=== PATIENT | female | born 1955 | race Asian ===

== ENCOUNTER 2016-05-11 20:22 | Emergency (ER) | payer BC ==
[~2016-05-11] VITALS: Ht 152.4 cm; Wt 46.5 kg
[2016-05-11 20:32] VITALS: Ht 152.4 cm; Wt 46.5 kg
--- NOTE | 2016-05-11 21:16 | ERD ---
ER Documentation Chief Complaint Date/Time DATE: 05/11/16 TIME: 21:12 Chief Complaint rashes neck area HPI This is a 60-year-old female who presents the emergency department today complaining of a rash on her chest and neck and arms and legs that started earlier this evening. Patient drink a significant amount of Gavilyte G as she has surgery tomorrow for an ovarian cyst. Patient stated that she started getting itchiness and rash after this. Denies any shortness of breath. Denies any difficulty breathing peer ROS All systems reviewed and are negative except as per history of present illness. Medications Home Meds Active Scripts Famotidine* (Pepcid*) 20 Mg Tablet, 20 MG PO BID for 7 Days, TAB Prov:MARK MORENO PA-C 05/11/16 Diphenhydramine Hcl* (Benadryl*) 25 Mg Cap, 25 MG PO Q6, #30 CAP Prov:MARK MORENO PA-C 05/11/16 Allergies Allergies: Coded Allergies: No Known Allergy (Unverified , 05/11/16) PMhx/Soc Medical and Surgical Hx: pt denies Medical Hx, pt denies Surgical Hx History of Surgery: No Anesthesia Reaction: No Hx Neurological Disorder: No Hx Respiratory Disorders: No Hx Cardiac Disorders: No (HTN, Hyperlipidemia) Hx Psychiatric Problems: No Hx Miscellaneous Medical Probl: Yes (DM) Hx Alcohol Use: No Hx Substance Use: No Hx Tobacco Use: No Smoking Status: Never smoker Physical Exam Vitals Vital Signs Date Time Temp Pulse Resp B/P Pulse Ox O2 Delivery O2 Flow Rate FiO2 05/11/16 20:32 97.9 78 20 187/90 100 Physical Exam Const: No acute distress Head: Atraumatic Eyes: Normal Conjunctiva ENT: Normal External Ears, Nose and Mouth. No lip swelling. No tongue swelling. Neck: Full range of motion..~ No meningismus. Resp: Clear to auscultation bilaterally no absent breath sounds. No wheezing. Cardio: Regular rate and rhythm, no murmurs Abd: Soft, non tender, non distended. Normal bowel sounds Skin: Diffuse urticaria over anterior chest and neck and spots on bilateral arms and legs. No evidence of cellulitis. No purulent drainage. Back: No midline or flank tenderness Ext: No cyanosis, or edema Neur: Awake and alert Psych: Normal Mood and Affect Results 24 hrs Current Medications Medications (Trade) Dose Ordered Sig/Leo Route PRN Reason Start Time Stop Time Status Last Admin Dose Admin Diphenhydramine HCl (Benadryl) 25 mg ONCE ONCE IM 05/11/16 21:30 05/11/16 21:31 DC 05/11/16 21:24 Famotidine (Pepcid) 20 mg ONCE ONCE PO 05/11/16 21:30 05/11/16 21:31 DC 05/11/16 21:24 Dexamethasone (Decadron) 10 mg ONCE ONCE IM 05/11/16 21:30 05/11/16 21:31 DC 05/11/16 21:24 Procedures/MDM This is a 60-year-old female who presents to the emergency department today for a rash on her chest and neck and arms and legs. Patient drank a significant amount of Gavilyte G for a surgical procedure that she is scheduled to have tomorrow. Patient symptoms at this time most consistent with urticaria and allergic reaction. Patient was instructed not to drink the remainder of the MANISH light. She was instructed to call her surgeon in the morning and notify them that she has not drink the entire recommended dosage. Patient is afebrile and otherwise well-appearing. She is not tachycardic. Her oxygen saturations 100%. She is not having any difficulty talking. She denies any shortness of breath. Low suspicion for angioedema or anaphylaxis. Low suspicion for cellulitis, sepsis, SJS, deep space infection. Patient was given Decadron Benadryl and Pepcid here in the emergency department. Patient reported feeling much better. I will give patient a prescription for Benadryl and Pepcid for home. Patient is on 2 medications for diabetes and I do not feel that she would benefit from extended prednisone for home. I have explained this to the patient. At this time the patient is stable for discharge and outpatient management. Patient should follow up with their PCP in the next 1-2 days. They may return to the emergency department sooner for any persistent or worsening of symptoms. Patient understood and agreed with the plan. Departure Diagnosis: Primary Impression: Allergic reaction Encounter type: initial encounter Qualified Code: T78.40XA - Allergic reaction, initial encounter Condition: MARK Gallardo PA-C May 11, 2016 21:16
[2016-05-11] MEDS ORDERED: FAMOTIDINE 20 MG TAB PO ONE (21:30)
[2016-05-11] MEDS ORDERED: DIPHENHYDRAMINE 50 MG INJ IM ONE (21:30)
[2016-05-11] MEDS ORDERED: DEXAMETHASONE 10 MG/ML 1 ML INJ IM ONE (21:30)
[2016-05-11] MEDS ORDERED: FAMO-18 PO (22:33)
[2016-05-11] MEDS ORDERED: BEN25 PO (22:33)
[2016-05-12] MEDS ORDERED: METF1000 PO (13:03)
[2016-05-12] MEDS ORDERED: GABA300C16 PO (13:03)
[2016-05-12] MEDS ORDERED: LOSA50TA6 PO (13:03)
[2016-05-12] MEDS ORDERED: SIMV-39 PO (13:03)
[2016-05-12] MEDS ORDERED: MULT-761 PO (13:03)
[2016-05-12] MEDS ORDERED: VIT D PO (13:03)
[2016-05-12] MEDS ORDERED: SITA100T8 PO (13:03)
[2016-05-12] MEDS ORDERED: ASPI-535 PO (13:03)
[2016-05-12] MEDS ORDERED: LANT3I SC (13:24)
== END 2016-05-11 22:41 | disposition home or self-care (01) ==
LOC: FTE 20:22
DX: R21 Rash and other nonspecific skin eruption (principal); I10 Essential (primary) hypertension; E11.9 Type 2 diabetes mellitus without complications
CPT/HCPCS: 96372; 99284; J1100; J1200; Z7610

== ENCOUNTER 2016-05-12 10:21 | Inpatient (IN) | payer BC ==
[2016-05-10 17:25] LABS: ADD SCAN DIFF NO
[2016-05-10 17:38] LABS: BASOPHILS % 0.3 % (0.0-2.0); EOSINOPHILS # 0.2 10^3/ul (0.0-0.5); EOSINOPHILS % 1.7 % (0.0-7.0); HEMATOCRIT 33.7 % (37.0-47.0); HEMOGLOBIN 11.1 g/dl (12.0-16.0); LYMPHOCYTES # 2.7 10^3/ul (0.8-2.9); LYMPHOCYTES % 30.7 % (15.0-51.0); MEAN CORPUSCULAR HEMOGLOBIN 30.8 pg (29.0-33.0); MEAN CORPUSCULAR HGB CONC 32.9 g/dl (32.0-37.0); MEAN CORPUSCULAR VOLUME 93.6 fl (82.0-101.0); MEAN PLATELET VOLUME 9.5 fl (7.4-10.4); MONOCYTE # 0.5 10^3/ul (0.3-0.9); NEUTROPHIL # 5.3 10^3/ul (1.6-7.5); PLATELET COUNT 315 10^3/UL (140-415); WHITE BLOOD COUNT 8.7 10^3/ul (4.8-10.8)
[2016-05-11 11:45] VITALS: BMI 19.5
[2016-05-12] VITALS (20 sets, daily range): BP systolic 99–143; BP diastolic 56–74; PULSE 66–97; RESP 15–30; Ht 154.9 cm; Wt 45.3 kg
[~2016-05-12] VITALS: Ht 154.9 cm; Wt 45.3 kg
[~2016-05-12 10:21] MED LIST: BEN25 PO; CEFAZOLIN 2 GM/50 ML (PMX) 50 ML IVPB ONE; D5-NS + KCL 20 MEQ 1,000 ML IV SCH; FAMO-18 PO; GLYCOPYRROLATE 0.4 MG INJ ONE; PROPOFOL 200 MG INJ ONE; metroNIDAZOLE 500 MG/NS (PMX) 100 ML IVPB ONE
[2016-05-12] MEDS ORDERED: SITA100T8 PO (13:03)
[2016-05-12] MEDS ORDERED: MULT-761 PO (13:03)
[2016-05-12] MEDS ORDERED: GABA300C16 PO (13:03)
[2016-05-12] MEDS ORDERED: METF1000 PO (13:03)
[2016-05-12] MEDS ORDERED: SIMV-39 PO (13:03)
[2016-05-12] MEDS ORDERED: ASPI-535 PO (13:03)
[2016-05-12] MEDS ORDERED: LOSA50TA6 PO (13:03)
[2016-05-12] MEDS ORDERED: VIT D PO (13:03)
[2016-05-12] MEDS ORDERED: LANT3I SC (13:24)
[2016-05-12] MEDS ORDERED: METHYLENE BLUE 10 MG/ML VIAL ONE (13:39)
[2016-05-12] MEDS ORDERED: MIDAZOLAM 1 MG/ML 2 ML INJ ONE (13:59)
[2016-05-12] MEDS ORDERED: ROCURONIUM 50 MG INJ ONE ×2 (13:59→16:55)
[2016-05-12] MEDS ORDERED: morphine SULFATE/PF (10 MG/10 ML) INJ ONE (13:59)
[2016-05-12] MEDS ORDERED: ETOMIDATE 20 MG INJ ONE (13:59)
--- NOTE | 2016-05-12 14:19 | HP ---
Date/Time of Note Date/Time of Note DATE: 05/12/16 TIME: 14:19 Assessment/Plan VTE Prophylaxis VTE Prophylaxis Intervention: SCD's Lines/Catheters IV [facility]ter [facility]from [facility] Peripheral IV HPI/ROS Admit Date/Time Admit Date/Time May 12, 2016 at 11:48 ROS Adonay Rosas M.D. [facility] History and Physical Examination Paolo Dowling 05/11/2016 Age:60 :1955 Physicians: Block Inspector Social Service Coordinator Oncologist Referring MD:Avery Aviles History of the Present Illness: This is a 60 female with a Atypical Complex Hyperplasia recently / possible Grade 1 endometrial carcinoma diagnosed by d/c endometrial biopsy. Medical history/ROS: Hypertension, Diabetes, Hyperlipidemia. G 6 P 6 Ab 0 Last Pap Smear: 03/16/2016; Last Mammogram: 07/11/2015 Surgical history: no significant abdominal procedures. Medications: 03/30/16 gabapentin 300 mg capsule 1 capsule by mouth DAILY 03/30/16 Januvia 100 mg tablet 1 tablet by mouth DAILY 03/30/16 Lantus 100 unit/mL subcutaneous solution 1 unit inject below the skin as directed 03/30/16 losartan 50 mg tablet 1 tablet by mouth DAILY 03/30/16 metformin 1,000 mg tablet 1 tablet by mouth DAILY 03/30/16 simvastatin 40 mg tablet 1 tablet by mouth DAILY Flu no, declined, Pneumococcal no, declined Colonoscopy: yes, over 10 years ago Allergies: 03/30/16 No Known Intolerances Family History: Noncontributory Social History: Noncontributory Review of Systems: Negative except for above noted Physical Examination Vitals (03/30/2016): Weight 106, Height 60, BP 140/80, BMI 20.7. General: Alert. HEENT: Pupils are equal, round, reactive to light and accommodation. Neck: Supple with no masses of lymphadenopathy. Breast: Deferred due to recent examination and responsibility of primary care physician. Chest: Clear to auscultation and percussion with no rales, ronchi, or wheeze. Heart: Normal rhythm with no murmur. Abdominal exam: nontender, nondistended, no masses, no ascites. location: N/A Pelvic exam: Uterus enlarged and globular, no masses or cul-de-sac nodularity noted Rectal: confirmatory with pelvic exam. Neurological: Grossly intact Assessment: possible endomtrial cancer stage to be determined Plan: TLH/BSO sentinel LND possible lapartotomy. All risks and benefits of this procedure have been discussed in detail with the patient, as well as alternative treatment strategies and their implications. The patient is aware that there is some possibility of a blood transfusion and its associated risks and benefits. She wishes to proceed and gives her informed consent. Adonay Rosas M.D. PMH/Family/Social Social History Smoking Status: Never smoker Exam/Review of Systems Vital Signs Vitals Vital Signs Date Time Temp Pulse Resp B/P Pulse Ox O2 Delivery O2 Flow Rate FiO2 05/12/16 13:27 98.3 97 17 143/67 100 Room Air Labs Result Diagram: 05/10/16 1725 Medications Medications Current Medications Potassium Chloride/Dextrose/ Sod Cl (D5-NS + KCl 20 Meq) 1,000 ml @ 100 mls/hr Q10H IV ; Start 05/12/16 at 07:00; Stop 05/12/16 at 16:59 ADONAY ROSAS MD May 12, 2016 14:19
--- NOTE | 2016-05-12 14:20 | HPN ---
Date/Time of Note Date/Time of Note DATE: 05/12/16 TIME: 14:20 Interval H&P Admission Note Pt. seen H&P reviewed: No system changes BEE ROSSA MD May 12, 2016 14:20
[2016-05-12] MEDS ORDERED: PHENYLephrine (100 MCG/ML) 5ML SYG ONE ×2 (15:24→15:53)
[2016-05-12] MEDS ORDERED: metroNIDAZOLE 500 MG/NS (PMX) 100 ML IVPB ONE (15:28)
[2016-05-12] MEDS ORDERED: CEFAZOLIN 1 GM INJ ONE (15:29)
[2016-05-12] MEDS ORDERED: FAMOTIDINE 20 MG INJ ONE (15:35)
[2016-05-12] MEDS ORDERED: ONDANSETRON 4 MG INJ ONE (15:35)
[2016-05-12] MEDS ORDERED: hydrALAzine 20 MG INJ ONE (16:24)
[2016-05-12] MEDS ORDERED: ONDANSETRON 4 MG INJ IV PRN (17:30)
[2016-05-12] MEDS ORDERED: DIPHENHYDRAMINE 50 MG INJ IV PRN (17:30)
[2016-05-12] MEDS ORDERED: NALOXONE (0.4 MG/ML) INJ IV PRN (17:30)
[2016-05-12] MEDS ORDERED: HYDROmorphONE 1 MG/ML SYG IV PRN ×2 (17:30)
[2016-05-12] MEDS ORDERED: PROCHLORPERAZINE 10 MG INJ IV PRN (17:30)
[2016-05-12] MEDS ORDERED: THROMBIN 5000 UNIT VIAL ONE (17:49)
[2016-05-12] MEDS ORDERED: NEOSTIGMINE 3 MG/3 ML SYRINGE ONE (18:07)
[2016-05-12] MEDS: KETOROLAC 30 MG INJ IV PRN (19:13)
[2016-05-12 20:16] LABS: ADD UMIC YES; URINE BILIRUBIN (Dip) NEGATIVE (NEGATIVE); URINE BLOOD (Dip) 1+ (NEGATIVE); URINE COLOR LT. YELLOW (YELLOW); URINE KETONES (Dip) NEGATIVE (NEGATIVE); URINE LEUKOCYTE ESTERASE (Dip) NEGATIVE (NEGATIVE); URINE NITRITE (Dip) NEGATIVE (NEGATIVE); URINE TOTAL PROTEIN (Dip) NEGATIVE (NEGATIVE); URINE UROBILINOGEN (Dip) 0.2 E.U./dL (0.1-1.0)
[2016-05-12] MEDS ORDERED: D5-LR + KCL 20 MEQ 1,000 ML IV SCH (20:30)
[2016-05-12] MEDS: ONDANSETRON 4 MG INJ IV PRN (20:35)
[2016-05-12 20:50] LABS: SQUAMOUS EPITHELIAL CELL,UR RARE
[2016-05-12] MEDS: CEFAZOLIN 1 GM/50 ML (PMX) 50 ML IVPB SCH (21:34)
[2016-05-13] VITALS: BP 130/71; PULSE 68; RESP 14
[2016-05-13 04:00] VITALS: BP 138/74; PULSE 75; RESP 16
[2016-05-13 05:08] LABS: ADD SCAN DIFF NO
[2016-05-13 05:24] LABS: BASOPHILS % 0.5 % (0.0-2.0); EOSINOPHILS % 0.2 % (0.0-7.0); LYMPHOCYTES # 1.2 10^3/ul (0.8-2.9); LYMPHOCYTES % 18.6 % (15.0-51.0); MEAN CORPUSCULAR HEMOGLOBIN 31.6 pg (29.0-33.0); MEAN CORPUSCULAR VOLUME 101.8 fl (82.0-101.0); MEAN PLATELET VOLUME 9.6 fl (7.4-10.4); MONOCYTE # 0.5 10^3/ul (0.3-0.9); MONOCYTES % 7.7 % (0.0-11.0); NEUTROPHIL # 4.5 10^3/ul (1.6-7.5); NEUTROPHILS % 72.7 % (39.0-77.0); PLATELET COUNT 231 10^3/UL (140-415); RED BLOOD COUNT 2.85 10^6/ul (4.20-5.40); RED CELL DISTRIBUTION WIDTH 12.5 % (11.5-14.5); WHITE BLOOD COUNT 6.2 10^3/ul (4.8-10.8)
[2016-05-13] MEDS: CEFAZOLIN 1 GM/50 ML (PMX) 50 ML IVPB SCH ×2 (05:35→16:19)
[2016-05-13 05:44] LABS: POTASSIUM 4.4 mmol/L (3.5-5.1)
[2016-05-13 05:46] LABS: CREATININE 1.1 mg/dl (0.44-1.00)
[2016-05-13 05:47] LABS: CALCIUM 8.3 mg/dl (8.4-10.2)
[2016-05-13] MEDS: KETOROLAC 30 MG INJ IV PRN ×2 (05:56→13:03)
[2016-05-13 07:57] VITALS: BP 112/59; RESP 18
[2016-05-13] MEDS: D5-LR + KCL 20 MEQ 1,000 ML IV SCH (11:07)
[2016-05-13] MEDS: ACETAMINOPHEN 325 MG TAB PO PRN (16:19)
[2016-05-13 19:00] VITALS: BP 160/74; RESP 19
--- NOTE | 2016-05-13 20:43 | PN ---
Date/Time of Note Date/Time of Note DATE: 05/13/16 TIME: 20:40 Assessment/Plan VTE Prophylaxis VTE Prophylaxis Intervention: SCD's Lines/Catheters IV Catheter Type (from Nrsg): Peripheral IV Urinary Cath still in place: Yes Subjective 24 Hr Interval Summary Free Text/Dictation S-c/o lower abd pain. + flatus and not OOB O- Resp- clear CVS- NSR Abd- was bleedng but now clean Ext NT minimal edema A- as above with delayed recoerey P- Hospitalist, adv diet,possibly tomorrow mobilize Exam/Review of Systems Vital Signs Vitals Vital Signs Date Time Temp Pulse Resp B/P Pulse Ox O2 Delivery O2 Flow Rate FiO2 05/13/16 19:00 98.3 89 19 160/74 96 05/13/16 10:05 Nasal Cannula 2.0 Intake and Output 05/12/16 05/12/16 05/13/16 15:00 23:00 07:00 Intake Total 2550 ml 880 ml Output Total 300 ml 900 ml Balance 2250 ml -20 ml Results Result Diagram: 05/13/16 0420 05/13/16 0420 Results 24 hrs Laboratory Tests Test 05/13/16 04:20 Anion Gap 16 Basophils # 0.0 Basophils % 0.5 Blood Urea Nitrogen 23 H Calcium Level 8.3 L Carbon Dioxide Level 22 Chloride Level 108 Creatinine 1.10 H Eosinophils # 0.0 Eosinophils % 0.2 Glucose Level 303 H Hematocrit 29.0 L Hemoglobin 9.0 L Lymphocytes # 1.2 Lymphocytes % 18.6 Mean Corpuscular Hemoglobin 31.6 Mean Corpuscular Hemoglobin Concent 31.0 L Mean Corpuscular Volume 101.8 H Mean Platelet Volume 9.6 Monocytes # 0.5 Monocytes % 7.7 Neutrophils # 4.5 Neutrophils % 72.7 Nucleated Red Blood Cells # 0.0 Nucleated Red Blood Cells % 0.0 Platelet Count 231 # Potassium Level 4.4 Red Blood Count 2.85 #L Red Cell Distribution Width 12.5 Sodium Level 142 White Blood Count 6.2 # Medications Medications Current Medications Ondansetron HCl (Zofran Inj) 4 mg Q6H PRN IV NAUSEA AND/OR VOMITING Last administered on 05/12/16t 20:35; Admin Dose 4 MG; Start 05/12/16 at 19:30 Acetaminophen/ Hydrocodone Bitart ([place] (5/325)) 1 tab Q6H PRN PO PAIN; Start 05/12/16 at 23:30 Morphine Sulfate 2 mg 2 mg Q3H PRN IV PAIN; Start 05/12/16 at 23:30 Potassium Cl/ Dextrose/Lact Ringer's (D5-Lr + KCl 20 Meq) 1,000 ml @ 60 mls/hr [id number] IV Last administered on 05/13/16 11:07; Admin Dose 60 MLS/HR; Start 05/13/16 at 08:00 Acetaminophen (Tylenol Tab) 650 mg Q4H PRN PO PAIN AND OR ELEVATED TEMP Last administered on 05/13/16 16:19; Admin Dose 650 MG; Start 05/13/16 at 16:00 BEE ROSAS MD May 13, 2016 20:43
[2016-05-13] MEDS: ONDANSETRON 4 MG INJ IV PRN (21:07)
[2016-05-13] MEDS: morphine 2 MG INJ IV PRN (21:08)
[2016-05-13] MEDS: HYDROCODONE/APAP (5/325) TAB PO PRN (23:25)
[2016-05-14] MEDS: D5-LR + KCL 20 MEQ 1,000 ML IV SCH ×3 (00:40→18:50)
[2016-05-14] MEDS: morphine 2 MG INJ IV PRN ×3 (00:54→13:00)
[2016-05-14] MEDS: HYDROCODONE/APAP (5/325) TAB PO PRN ×2 (03:50→11:43)
[2016-05-14] MEDS: ONDANSETRON 4 MG INJ IV PRN ×3 (06:10→20:16)
[2016-05-14 06:38] LABS: ADD SCAN DIFF NO
[2016-05-14 07:00] LABS: BASOPHILS % 0.5 % (0.0-2.0); EOSINOPHILS # 0.1 10^3/ul (0.0-0.5); EOSINOPHILS % 1.9 % (0.0-7.0); HEMATOCRIT 27.2 % (37.0-47.0); HEMOGLOBIN 8.8 g/dl (12.0-16.0); LYMPHOCYTES # 1.4 10^3/ul (0.8-2.9); LYMPHOCYTES % 21.6 % (15.0-51.0); MEAN CORPUSCULAR HEMOGLOBIN 31.3 pg (29.0-33.0); MEAN CORPUSCULAR HGB CONC 32.4 g/dl (32.0-37.0); MEAN CORPUSCULAR VOLUME 96.8 fl (82.0-101.0); MEAN PLATELET VOLUME 9.7 fl (7.4-10.4); MONOCYTE # 0.5 10^3/ul (0.3-0.9); MONOCYTES % 8.2 % (0.0-11.0); NEUTROPHIL # 4.4 10^3/ul (1.6-7.5); NEUTROPHILS % 67.3 % (39.0-77.0); PLATELET COUNT 226 10^3/UL (140-415); RED BLOOD COUNT 2.81 10^6/ul (4.20-5.40); RED CELL DISTRIBUTION WIDTH 12.3 % (11.5-14.5); WHITE BLOOD COUNT 6.5 10^3/ul (4.8-10.8)
[2016-05-14 07:10] LABS: POTASSIUM 4.2 mmol/L (3.5-5.1)
[2016-05-14 07:13] LABS: CREATININE 1.01 mg/dl (0.44-1.00)
[2016-05-14 07:14] LABS: CALCIUM 8.7 mg/dl (8.4-10.2)
[2016-05-14 07:53] VITALS: BP 132/68; RESP 19
[2016-05-14] MEDS ORDERED: KETOROLAC 30 MG INJ IV PRN (12:30)
[2016-05-14] MEDS: HYDROmorphONE 1 MG/ML SYG IV PRN ×2 (17:27→20:56)
[2016-05-14] MEDS ORDERED: HYDROmorphONE 1 MG/ML SYG IV PRN (17:30)
--- NOTE | 2016-05-14 17:57 | PN ---
Date/Time of Note Date/Time of Note DATE: 05/14/16 TIME: 17:55 Assessment/Plan VTE Prophylaxis VTE Prophylaxis Intervention: SCD's, other Lines/Catheters IV Catheter Type (from Nrsg): Saline Lock Urinary Cath still in place: Yes Subjective 24 Hr Interval Summary Free Text/Dictation S- Ongoing pain and difficulty voiding, + flatus yet. Minimally OOB O- Resp- clear CVS- NSR Abd- appropriate tenderness and incision clean Ext- NT mild edema A/P-possible retention. OOB more Exam/Review of Systems Vital Signs Vitals Vital Signs Date Time Temp Pulse Resp B/P Pulse Ox O2 Delivery O2 Flow Rate FiO2 05/14/16 07:53 98.9 89 19 132/68 92 05/13/16 10:05 Nasal Cannula 2.0 Intake and Output 05/13/16 05/13/16 05/14/16 15:00 23:00 07:00 Intake Total 250 ml 1200 ml 1060 ml Output Total 600 ml 300 ml Balance 250 ml 600 ml 760 ml Results Result Diagram: 05/14/16 0440 05/14/16 0450 Results 24 hrs Laboratory Tests Test 05/14/16 04:40 05/14/16 04:50 Basophils # 0.0 Basophils % 0.5 Eosinophils # 0.1 Eosinophils % 1.9 Hematocrit 27.2 L Hemoglobin 8.8 L Lymphocytes # 1.4 Lymphocytes % 21.6 Mean Corpuscular Hemoglobin 31.3 Mean Corpuscular Hemoglobin Concent 32.4 Mean Corpuscular Volume 96.8 Mean Platelet Volume 9.7 Monocytes # 0.5 Monocytes % 8.2 Neutrophils # 4.4 Neutrophils % 67.3 Nucleated Red Blood Cells # 0.0 Nucleated Red Blood Cells % 0.0 Platelet Count 226 Red Blood Count 2.81 L Red Cell Distribution Width 12.3 White Blood Count 6.5 Anion Gap 15 Blood Urea Nitrogen 18 Calcium Level 8.7 Carbon Dioxide Level 22 Chloride Level 109 Creatinine 1.01 H Glucose Level 216 Potassium Level 4.2 Sodium Level 142 Medications Medications Current Medications Ondansetron HCl (Zofran Inj) 4 mg Q6H PRN IV NAUSEA AND/OR VOMITING Last administered on 05/14/16t 13:00; Admin Dose 4 MG; Start 05/12/16 at 19:30 Acetaminophen/ Hydrocodone Bitart 1 tab 1 tab Q6H PRN PO PAIN Last administered on 05/14/16 11:43; Admin Dose 1 TAB; Start 05/12/16 at 23:30 Potassium Cl/ Dextrose/Lact Ringer's (D5-Lr + KCl 20 Meq) 1,000 ml @ 60 mls/hr [id number] IV Last administered on 05/14/16 02:02; Admin Dose 60 MLS/HR; Start 05/13/16 at 08:00 Acetaminophen (Tylenol Tab) 650 mg Q4H PRN PO PAIN AND OR ELEVATED TEMP Last administered on 05/13/16 16:19; Admin Dose 650 MG; Start 05/13/16 at 16:00 Ketorolac Tromethamine (Toradol) 30 mg Q6H PRN IV PAIN; Start 05/14/16 at 12:30 ; Stop 05/17/16 at 12:29 Hydromorphone HCl (Dilaudid) 0.2 mg Q3 PRN IV PAIN LEVEL 1-5 Last administered on 05/14/16 17:27; Admin Dose 0.2 MG; Start 05/14/16 at 17:30 Hydromorphone HCl (Dilaudid) 0.4 mg Q3 PRN IV PAIN LEVEL 6-10; Start 05/14/16 at 17:30 BEE ROSAS MD May 14, 2016 17:57
--- NOTE | 2016-05-14 19:30 | OPR ---
Date/Time of Note Date/Time of Note DATE: 05/14/16 TIME: 19:29 Operative Report Free Text/Dictation OPERATIVE REPORT [facility] Name: Paolo Roberson Date: 05/12/16 Preoperative Diagnosis: Endometrial severe hyperplasia with atypia Postoperative Diagnosis: Endometrial cancer with final pathology pending Procedures: 1- Total laparoscopic hysterectomy with bilateral salpingoophorectomy 2- Bilateral ureteral dissection with repositioning 3- Laparoscopic sentinal pelvic and aortic lymph node dissection Surgeon: Dr. Byrd Community Relations Police Lieutenant: Dr. Willie Rangel Anaesthesia: General with regional Indications for Procedure: This 60- year old patient had endometrial hyperplasia , complex with atypia preoperatively and after discussions of options with risks and benefits it was determined that a laparoscopic hysterectomy with bilateral salpingoophorectomy and sentinal pelvic/aortic lymph node dissection would be completed for the purposes of treatment and possibly planning additional adjuvant therapy if needed. The sentinal pelvic and LND was performed in lieu of the frozen section not being more that 80% reliable in determining presence of cancer; therefore selective staging is performed to determine postoperative management and avoid re-operation unless there is a significant contraindication. Intraoperative Findings and Summary of Procedure: After placing the Trocars and exploration we noted a lightly enlarged uterus with significant adhesions of the adnexia to the sidewalls The TLH/BSO was then Name: Paolo Roberson performed without incident but required a ureteral dissection due to anatomic issues of the adnexia adherent to the sidewalls after which the laparoscopic sentinal LND was performed with a finding of grossly negative nodes pathology pending. Findings and Procedure: After being prepped and draped in the usual manner an EEA sizer and balloon was placed against the cervix. A 5 millimeter trocar was then placed periumbilically without incident. Subsequently, we insufflated and placed two 12- millimeter trocars laterally and a 12 millimeter trocar suprapubically, as well as an additional 5-mm trocar cephlad to the umbilicus. At this time multiple pelvic adhesions were lysed with sharp dissection and the Omni if not adjacent to serosa. Subsequently we explored and noted a moderately enlarged irregular uterus with adnexia adherent to the sidewalls due to apparent inflammation and old scar tissue. Initially the right round ligament was cauterized and transected with the Thunderbeat and the retroperitoneal space further opened parallel to the IP ligament and laterally with the same devise. The right ureter was identified and due to the aforementioned distortion from adherent adnexia was dissected laterally with the Omni and the endo-dissector throughout the length of the ureter and lateralized. After lateralizing the ureter the uterine artery was identified and clipped lateral to the ureter. Hence, a space was developed the broad ligament and the right IP ligament was cauterized and transected with a Thunderbeat after which the uterus was retracted medially and the bladder flap was partly developed with the Thunderbeat and the Omni. We then used a ratcheted endo-grasper placed through the 12-mm suprapubic trocar to manipulate the uterus and with the EEA sizer the uterus was retracted and left round ligament was cauterized and transected with the Thunderbeat and the retroperitoneal space further opened parallel to the IP ligament an laterally with the same devise. The left ureter was identified and due to the aforementioned distortion was dissected laterally with the Omni and the endo-dissector as done contralaterally. After lateralizing the ureter the uterine artery was identified and Name: Paolo [facility] clipped lateral to the ureter. Subsequently, a space was developed in the broad ligament and the left IP ligament was cauterized and transected with a Thunderbeat after which the uterus was retracted medially, allowing development or the bladder flap uneventfully with the Omni and blunt dissection. Subsequently, the right uterine artery was transected with a Thunderbeat perpendicular to the distal lower uterine segment and the Cardinal ligament and utero-sacral ligament were both transected with a Thunderbeat parallel to the lower uterine segment and cervix. An identical series of steps were taken on the left side. The anterior and posterior colpotomies were accomplished with a Thunderbeat anteriorly and posteriorly, and continued around the sides with the Omni and Thunderbeat as the specimen was removed through the vagina uneventfully. The vagina was closed with interrupted 0- vicryl and continuous 2 -0 v-lock suture. At this time the frozen section returned uncertain and the sentinal pelvic and aortic LND were completed after confirming hemostasis. Initially a fan retractor was used for exposure and secured to the Javier arm and all appropriate node tissue adjacent to the right pelvic vessels were removed with sharp and blunt dissection, using the Gyrus bipolar cutting forceps or Gyrus bipolar Omni for hemostasis and lymphostasis. The stefanie tissue was grasped and subsequently placed under tractions with the Omni and the Gyrus bipolar cutting forceps then being used for the hemostasis and lymphostasis in the process of removal and included hypogastric and obturator nodes with the obturator nerve visualized. The dissection was continued to include any stefanie tissue adjacent to the common iliac vessels. The fan retractors were adjusted in that a suprapubically placed fan retracted the broad ligament and ureter with ileum while the right lateral trocar was used for a fan to retract the cecum and ascending colon allowing stefanie tissue adjacent to the vena cava, as well as aorto-caval nodes to be removed using identical technique. Entry Level Project Coordinator vessels were addressed with the Gyrus bipolar cutting forceps or Gyrus bipolar Omni. At this time we placed the fan retractors for contralateral exposure. Subsequently, node tissue adjacent to the left pelvic vessles were removed with sharp and blunt dissection, the Gyrus bipolar cutting forceps or Gyrus bipolar Omni for hemostasis and lymphostasis, with a technique identical to the Name: [facility] right side with equivalent extent of completion. The dissection was continued to include stefanie tissue adjacent to the common iliac vessels. Subsequently, the fan retractors were adjusted and stefanie tissue adjacent to the aorta were dissected using similar technique. After irrigating and assuring hemostasis the 12 millimeter trocars were removed and the fascia was closed with 0-vicryl using an endo-close devise. The gas was removed and the skin of all sites then closed with interrupted 4-0 Plain Gut. The EBL was 100cc and the patient tolerated the procedure well and left the OR in good condition. Bee Byrd M.D. BEE BYRD MD May 14, 2016 19:30
[2016-05-14 21:00] VITALS: BP 197/89; PULSE 96; RESP 17
[2016-05-14] MEDS ORDERED: CLON-379 PO (21:24)
[2016-05-14] MEDS: FAMOTIDINE 20 MG TAB PO SCH (21:30)
[2016-05-14] MEDS: ATORVASTATIN 20 MG TAB PO SCH (21:53)
[2016-05-14] MEDS ORDERED: GLUCAGON 1 MG INJ IM PRN (22:00)
[2016-05-14] MEDS ORDERED: GLUCOSE GEL 15 GRAM TUBE PO PRN ×2 (22:00)
[2016-05-14] MEDS ORDERED: GLUCOSE GEL 15 GRAM TUBE BUCCAL PRN (22:00)
[2016-05-14] MEDS ORDERED: DEXTROSE 50% 50 ML SYRINGE IV PRN ×2 (22:00)
[2016-05-14 22:31] VITALS: BP 186/85; PULSE 92; RESP 17
[2016-05-14 23:37] VITALS: BP 172/82; PULSE 90; RESP 17
[2016-05-15 01:20] VITALS: BP 130/71; PULSE 78; RESP 18
[2016-05-15] MEDS: ACCUCHECK XX SCH (02:00)
[2016-05-15] MEDS: HYDROCODONE/APAP (5/325) TAB PO PRN ×3 (03:31→10:27)
[2016-05-15 05:17] LABS: ADD SCAN DIFF NO
[2016-05-15 05:40] LABS: BASOPHILS % 0.1 % (0.0-2.0); EOSINOPHILS # 0.1 10^3/ul (0.0-0.5); EOSINOPHILS % 1.4 % (0.0-7.0); HEMATOCRIT 24.1 % (37.0-47.0); LYMPHOCYTES # 1.2 10^3/ul (0.8-2.9); LYMPHOCYTES % 16.3 % (15.0-51.0); MEAN CORPUSCULAR HEMOGLOBIN 30.9 pg (29.0-33.0); MEAN CORPUSCULAR HGB CONC 33.2 g/dl (32.0-37.0); MEAN CORPUSCULAR VOLUME 93.1 fl (82.0-101.0); MEAN PLATELET VOLUME 9.6 fl (7.4-10.4); MONOCYTE # 0.6 10^3/ul (0.3-0.9); MONOCYTES % 8.2 % (0.0-11.0); NEUTROPHIL # 5.3 10^3/ul (1.6-7.5); NEUTROPHILS % 73.7 % (39.0-77.0); PLATELET COUNT 214 10^3/UL (140-415); RED BLOOD COUNT 2.59 10^6/ul (4.20-5.40); RED CELL DISTRIBUTION WIDTH 11.9 % (11.5-14.5); WHITE BLOOD COUNT 7.2 10^3/ul (4.8-10.8)
[2016-05-15 05:41] LABS: POTASSIUM 4.1 mmol/L (3.5-5.1)
[2016-05-15 05:44] LABS: CREATININE 0.9 mg/dl (0.44-1.00)
[2016-05-15 05:45] LABS: CALCIUM 8.6 mg/dl (8.4-10.2)
[2016-05-15] MEDS: GABAPENTIN 300 MG CAP PO SCH (08:50)
[2016-05-15] MEDS: LINAGLIPTIN 5 MG TABLET PO SCH (08:51)
[2016-05-15] MEDS: metFORMIN 500 MG TAB PO SCH ×2 (08:51→18:44)
[2016-05-15] MEDS: LOSARTAN 50 MG TAB PO SCH (08:51)
[2016-05-15] MEDS: FAMOTIDINE 20 MG TAB PO SCH ×2 (08:51→21:37)
[2016-05-15] MEDS: INSULIN ASPART [NOVOLOG] 3 ML PEN SC SCH ×4 (08:59→20:54)
[2016-05-15] MEDS: INSULIN GLARGINE [LANtus] 3 ML PEN SC SCH (09:00)
[2016-05-15] MEDS ORDERED: NON-FORMULARY/PATIENT OWN MED (Sitagliptin* (Januvia*) 100 MG) PO SCH (09:00)
[2016-05-15] MEDS: KETOROLAC 15 MG INJ IV PRN ×2 (09:07→18:44)
[2016-05-15] MEDS: ONDANSETRON 4 MG INJ IV PRN (10:15)
[2016-05-15] MEDS: D5-LR + KCL 20 MEQ 1,000 ML IV SCH (10:16)
--- NOTE | 2016-05-15 14:08 | RADRPT ---
Vent Rate: 94 bpm RR Interval: 0 msec AL Interval: 194 msec QRS Duration: 78 msec QT Interval: 350 msec QTC Interval: 437 msec P-R-T [place]: 55 - 53 - 68 degrees Normal sinus rhythm Normal ECG Electronically Signed By: Andrew Alonso [id number]
[2016-05-15] MEDS: LORAZEPAM 1 MG TAB PO PRN (14:43)
[2016-05-15 20:00] VITALS: BP 183/86; PULSE 80; RESP 16
[2016-05-15] MEDS: ATORVASTATIN 20 MG TAB PO SCH (20:49)
[2016-05-15] MEDS ORDERED: SIMVASTATIN 40 MG PO SCH (21:00)
--- NOTE | 2016-05-15 21:19 | PN ---
Date/Time of Note Date/Time of Note DATE: 05/15/16 TIME: 21:16 Assessment/Plan VTE Prophylaxis VTE Prophylaxis Intervention: SCD's Lines/Catheters IV Catheter Type (from Nrsg): Peripheral IV Urinary Cath still in place: No Assessment/Plan Assessment/Plan A/P-possible retention. OOB more; check post void residual Subjective 24 Hr Interval Summary Free Text/Dictation S- Ongoing pain and difficulty voiding, + flatus yet. Minimally OOB O- Resp- clear CVS- NSR Abd- appropriate tenderness and incision clean Ext- NT mild edema A/P-possible retention. OOB more; check post void residual Exam/Review of Systems Vital Signs Vitals Vital Signs Date Time Temp Pulse Resp B/P Pulse Ox O2 Delivery O2 Flow Rate FiO2 05/15/16 01:20 78 18 130/71 05/14/16 20:34 99.8 05/14/16 07:53 92 05/13/16 10:05 Nasal Cannula 2.0 Intake and Output 05/14/16 05/14/16 05/15/16 15:00 23:00 07:00 Intake Total 700 ml 840 ml Output Total 1500 ml 800 ml Balance -800 ml 40 ml Results Result Diagram: 05/15/16 0440 05/15/16 0440 Results 24 hrs Laboratory Tests Test 05/15/16 04:40 05/15/16 08:07 05/15/16 11:07 05/15/16 17:41 Anion Gap 11 Basophils # 0.0 Basophils % 0.1 Blood Urea Nitrogen 12 Calcium Level 8.6 Carbon Dioxide Level 27 Chloride Level 104 Creatinine 0.90 Eosinophils # 0.1 Eosinophils % 1.4 Glucose Level 244 H Hematocrit 24.1 L Hemoglobin 8.0 L Lymphocytes # 1.2 Lymphocytes % 16.3 Mean Corpuscular Hemoglobin 30.9 Mean Corpuscular Hemoglobin Concent 33.2 Mean Corpuscular Volume 93.1 Mean Platelet Volume 9.6 Monocytes # 0.6 Monocytes % 8.2 Neutrophils # 5.3 Neutrophils % 73.7 Nucleated Red Blood Cells # 0.0 Nucleated Red Blood Cells % 0.0 Platelet Count 214 Potassium Level 4.1 Red Blood Count 2.59 L Red Cell Distribution Width 11.9 Sodium Level 138 White Blood Count 7.2 Bedside Glucose 267 H 238 H 157 Test 05/15/16 20:53 Bedside Glucose 127 Medications Medications Current Medications Ondansetron HCl (Zofran Inj) 4 mg Q6H PRN IV NAUSEA AND/OR VOMITING Last administered on 05/15/16 10:15; Admin Dose 4 MG; Start 05/12/16 at 19:30 Acetaminophen/ Hydrocodone Bitart 1 tab 1 tab Q6H PRN PO PAIN Last administered on 05/15/16 10:15; Admin Dose 1 TAB; Start 05/12/16 at 23:30 Potassium Cl/ Dextrose/Lact Ringer's (D5-Lr + KCl 20 Meq) 1,000 ml @ 60 mls/hr [id number] IV Last administered on 05/15/16 10:16; Admin Dose 60 MLS/HR; Start 05/13/16 at 08:00 Acetaminophen (Tylenol Tab) 650 mg Q4H PRN PO PAIN AND OR ELEVATED TEMP Last administered on 05/13/16 16:19; Admin Dose 650 MG; Start 05/13/16 at 16:00 Hydromorphone HCl (Dilaudid) 0.2 mg Q3 PRN IV PAIN LEVEL 1-5 Last administered on 05/14/16 20:56; Admin Dose 0.2 MG; Start 05/14/16 at 17:30 Hydromorphone HCl (Dilaudid) 0.4 mg Q3 PRN IV PAIN LEVEL 6-10 Last administered on 05/15/16 10:29; Admin Dose 0.4 MG; Start 05/14/16 at 17:30 Ketorolac Tromethamine (Toradol) 15 mg Q6H PRN IV PAIN Last administered on 05/15 18:44; Admin Dose 15 MG; Start 05/14/16 at 18:30; Stop 05/17/16 at 18:29 Famotidine (Pepcid) 20 mg BID PO Last administered on 05/15/16 08:51; Admin Dose 20 MG; Start 05/14/16 at 21:30 Gabapentin (Neurontin) 300 mg DAILY PO Last administered on 05/15/16 08:50; Admin Dose 300 MG; Start 05/15/16 at 09:00 Insulin Glargine (Lantus) 20 unit DAILY SC Last administered on 05/15/16 09:00 ; Admin Dose 20 UNIT; Start 05/15/16 at 09:00 Losartan Potassium (Cozaar) 50 mg DAILY PO Last administered on 05/15/16 08:51 ; Admin Dose 50 MG; Start 05/15/16 at 09:00 Diagnostic Test (Pha) (Accucheck) 1 ea 02 XX ; Start 05/15/16 at 02:00 Atorvastatin Calcium (Lipitor) 20 mg DAILY@21 PO Last administered on 05/15/16 20:49; Admin Dose 20 MG; Start 05/14/16 at 21:00 Clonidine (Catapres) 0.1 mg Q6H PRN PO ELEVATED BLOOD PRESSURE Last administered on 05/15/16 20:49; Admin Dose 0.1 MG; Start 05/14/16 at 22:00 Linagliptin (Tradjenta) 5 mg DAILY PO Last administered on 05/15/16 08:51; Admin Dose 5 MG; Start 05/15/16 at 09:00 Miscellaneous Information 1 ea NOTE XX ; Start 05/14/16 at 22:00 Glucose (Glutose) 15 gm Q15M PRN PO DECREASED GLUCOSE; Start 05/14/16 at 22:00 Glucose (Glutose) 22.5 gm Q15M PRN PO DECREASED GLUCOSE; Start 05/14/16 at 22:00 Dextrose (D50w Syringe) 25 ml Q15M PRN IV DECREASED GLUCOSE; Start 05/14/16 at 22:00 Dextrose (D50w Syringe) 50 ml Q15M PRN IV DECREASED GLUCOSE; Start 05/14/16 at 22:00 Glucagon (Glucagen) 1 mg Q15M PRN IM DECREASED GLUCOSE; Start 05/14/16 at 22:00 Glucose (Glutose) 15 gm Q15M PRN BUCCAL DECREASED GLUCOSE; Start 05/14/16 at 22: 00 Lorazepam (Ativan) 1 mg Q6H PRN PO ANXIETY Last administered on 05/15/16 14:43 ; Admin Dose 1 MG; Start 05/15/16 at 14:00 BEE ROSAS MD May 15, 2016 21:19
[2016-05-15 21:30] VITALS: BP 160/80; PULSE 78; RESP 16
[2016-05-15 22:13] VITALS: BP 128/77; PULSE 77; RESP 16
[2016-05-16] MEDS: ACCUCHECK XX SCH (02:00)
[2016-05-16] MEDS: D5-LR + KCL 20 MEQ 1,000 ML IV SCH ×2 (02:20→18:20)
[2016-05-16] MEDS: ONDANSETRON 4 MG INJ IV PRN ×3 (02:20→17:23)
[2016-05-16 04:54] LABS: ADD SCAN DIFF NO
[2016-05-16 05:10] LABS: BASOPHILS % 0.5 % (0.0-2.0); EOSINOPHILS # 0.2 10^3/ul (0.0-0.5); EOSINOPHILS % 2.2 % (0.0-7.0); HEMATOCRIT 24.1 % (37.0-47.0); HEMOGLOBIN 8.1 g/dl (12.0-16.0); LYMPHOCYTES # 1.4 10^3/ul (0.8-2.9); LYMPHOCYTES % 18.4 % (15.0-51.0); MEAN CORPUSCULAR HEMOGLOBIN 31.2 pg (29.0-33.0); MEAN CORPUSCULAR HGB CONC 33.6 g/dl (32.0-37.0); MEAN CORPUSCULAR VOLUME 92.7 fl (82.0-101.0); MEAN PLATELET VOLUME 9.3 fl (7.4-10.4); MONOCYTE # 0.6 10^3/ul (0.3-0.9); NEUTROPHIL # 5.5 10^3/ul (1.6-7.5); NEUTROPHILS % 70.5 % (39.0-77.0); PLATELET COUNT 248 10^3/UL (140-415); RED CELL DISTRIBUTION WIDTH 11.7 % (11.5-14.5); WHITE BLOOD COUNT 7.7 10^3/ul (4.8-10.8)
[2016-05-16 05:36] LABS: POTASSIUM 3.9 mmol/L (3.5-5.1)
[2016-05-16 05:38] LABS: ALBUMIN/GLOBULIN RATIO 1.07; BILIRUBIN,INDIRECT 0.2 mg/dl (0-1.1); BILIRUBIN,TOTAL 0.2 mg/dl (0.2-1.3); CREATININE 1.34 mg/dl (0.44-1.00); TOTAL PROTEIN 5.8 g/dl (6.1-8.1)
[2016-05-16] MEDS: KETOROLAC 15 MG INJ IV PRN (07:17)
[2016-05-16] MEDS: INSULIN ASPART [NOVOLOG] 3 ML PEN SC SCH ×4 (07:50→22:20)
[2016-05-16 08:42] VITALS: BP 145/69; RESP 16
[2016-05-16] MEDS: metFORMIN 500 MG TAB PO SCH ×3 (10:13→17:55)
[2016-05-16] MEDS: LINAGLIPTIN 5 MG TABLET PO SCH (10:13)
[2016-05-16] MEDS: GABAPENTIN 300 MG CAP PO SCH (10:13)
[2016-05-16] MEDS: LOSARTAN 50 MG TAB PO SCH (10:13)
[2016-05-16] MEDS: FAMOTIDINE 20 MG TAB PO SCH (10:13)
[2016-05-16] MEDS: INSULIN GLARGINE [LANtus] 3 ML PEN SC SCH (10:25)
--- NOTE | 2016-05-16 13:04 | PN ---
Date/Time of Note Date/Time of Note DATE: 05/16/16 TIME: 13:02 Assessment/Plan VTE Prophylaxis VTE Prophylaxis Intervention: SCD's Lines/Catheters IV Catheter Type (from Nrs): Peripheral IV Urinary Cath still in place: No Assessment/Plan Chief Complaint/Hosp Course endometrial hyperplasia, DM, HTN Problems: Assessment/Plan A/P-Adv diet and OOB more and bladder train Subjective 24 Hr Interval Summary Free Text/Dictation S- Less pain and + BM. Minimally OOB O- Resp- clear CVS- NSR Abd- appropriate tenderness and incision clean Ext- NT mild edema A/P-Adv diet and OOB more and bladder train Exam/Review of Systems Vital Signs Vitals Vital Signs Date Time Temp Pulse Resp B/P Pulse Ox O2 Delivery O2 Flow Rate FiO2 05/16/16 08:42 98.3 78 16 145/69 98 05/15/16 21:30 Room Air 05/13/16 10:05 2.0 Intake and Output 05/15/16 05/15/16 05/16/16 15:00 23:00 07:00 Intake Total 800 ml 960 ml Output Total 550 ml Balance 800 ml 410 ml Results Result Diagram: 05/16/16 0420 05/16/16 0420 Results 24 hrs Laboratory Tests Test 05/15/16 17:41 05/15/16 20:53 05/16/16 04:20 05/16/16 08:28 Bedside Glucose 157 127 103 Alanine Aminotransferase (ALT/SGPT) 27 Albumin 3.0 L Albumin/Globulin Ratio 1.07 Alkaline Phosphatase 55 Anion Gap 12 Aspartate Amino Transf (AST/SGOT) 23 Basophils # 0.0 Basophils % 0.5 Blood Urea Nitrogen 14 Calcium Level 9.0 Carbon Dioxide Level 31 Chloride Level 103 Creatinine 1.34 H Direct Bilirubin 0.00 Eosinophils # 0.2 Eosinophils % 2.2 Globulin 2.80 Glucose Level 89 # Hematocrit 24.1 L Hemoglobin 8.1 L Indirect Bilirubin 0.2 Lymphocytes # 1.4 Lymphocytes % 18.4 Mean Corpuscular Hemoglobin 31.2 Mean Corpuscular Hemoglobin Concent 33.6 Mean Corpuscular Volume 92.7 Mean Platelet Volume 9.3 Monocytes # 0.6 Monocytes % 8.0 Neutrophils # 5.5 Neutrophils % 70.5 Nucleated Red Blood Cells # 0.0 Nucleated Red Blood Cells % 0.0 Platelet Count 248 Potassium Level 3.9 Red Blood Count 2.60 L Red Cell Distribution Width 11.7 Sodium Level 142 Total Bilirubin 0.2 Total Protein 5.8 L White Blood Count 7.7 Test 05/16/16 12:36 Bedside Glucose 142 Medications Medications Current Medications Ondansetron HCl (Zofran Inj) 4 mg Q6H PRN IV NAUSEA AND/OR VOMITING Last administered on 05/16/16 08:39; Admin Dose 4 MG; Start 05/12/16 at 19:30 Acetaminophen/ Hydrocodone Bitart 1 tab 1 tab Q6H PRN PO PAIN Last administered on 05/15/16 10:15; Admin Dose 1 TAB; Start 05/12/16 at 23:30 Potassium Cl/ Dextrose/Lact Ringer's (D5-Lr + KCl 20 Meq) 1,000 ml @ 60 mls/hr [id number] IV Last administered on 05/16/16 02:20; Admin Dose 60 MLS/HR; Start 05/13/16 at 08:00 Acetaminophen (Tylenol Tab) 650 mg Q4H PRN PO PAIN AND OR ELEVATED TEMP Last administered on 05/13/16 16:19; Admin Dose 650 MG; Start 05/13/16 at 16:00 Hydromorphone HCl (Dilaudid) 0.2 mg Q3 PRN IV PAIN LEVEL 1-5 Last administered on 05/14/16 20:56; Admin Dose 0.2 MG; Start 05/14/16 at 17:30 Hydromorphone HCl (Dilaudid) 0.4 mg Q3 PRN IV PAIN LEVEL 6-10 Last administered on 05/15/16 10:29; Admin Dose 0.4 MG; Start 05/14/16 at 17:30 Ketorolac Tromethamine (Toradol) 15 mg Q6H PRN IV PAIN Last administered on 05/16 07:17; Admin Dose 15 MG; Start 05/14/16 at 18:30; Stop 05/17/16 at 18:29 Gabapentin (Neurontin) 300 mg DAILY PO Last administered on 05/16/16 10:13; Admin Dose 300 MG; Start 05/15/16 at 09:00 Insulin Glargine (Lantus) 20 unit DAILY SC Last administered on 05/16/16 10:25 ; Admin Dose 20 UNIT; Start 05/15/16 at 09:00 Losartan Potassium (Cozaar) 50 mg DAILY PO Last administered on 05/16/16 10:13 ; Admin Dose 50 MG; Start 05/15/16 at 09:00 Diagnostic Test (Pha) (Accucheck) 1 ea 02 XX ; Start 05/15/16 at 02:00 Atorvastatin Calcium (Lipitor) 20 mg DAILY@21 PO Last administered on 05/15/16 20:49; Admin Dose 20 MG; Start 05/14/16 at 21:00 Clonidine (Catapres) 0.1 mg Q6H PRN PO ELEVATED BLOOD PRESSURE Last administered on 05/15/16 20:49; Admin Dose 0.1 MG; Start 05/14/16 at 22:00 Linagliptin (Tradjenta) 5 mg DAILY PO Last administered on 05/16/16 10:13; Admin Dose 5 MG; Start 05/15/16 at 09:00 Miscellaneous Information 1 ea NOTE XX ; Start 05/14/16 at 22:00 Glucose (Glutose) 15 gm Q15M PRN PO DECREASED GLUCOSE; Start 05/14/16 at 22:00 Glucose (Glutose) 22.5 gm Q15M PRN PO DECREASED GLUCOSE; Start 05/14/16 at 22:00 Dextrose (D50w Syringe) 25 ml Q15M PRN IV DECREASED GLUCOSE; Start 05/14/16 at 22:00 Dextrose (D50w Syringe) 50 ml Q15M PRN IV DECREASED GLUCOSE; Start 05/14/16 at 22:00 Glucagon (Glucagen) 1 mg Q15M PRN IM DECREASED GLUCOSE; Start 05/14/16 at 22:00 Glucose (Glutose) 15 gm Q15M PRN BUCCAL DECREASED GLUCOSE; Start 05/14/16 at 22: 00 Lorazepam (Ativan) 1 mg Q6H PRN PO ANXIETY Last administered on 05/15/16 14:43 ; Admin Dose 1 MG; Start 05/15/16 at 14:00 Famotidine (Pepcid) 20 mg DAILY PO ; Start 05/17/16 at 09:00 BEE ROSAS MD May 16, 2016 13:04
--- NOTE | 2016-05-16 13:36 | CONS ---
DATE OF ADMISSION: 05/12/2016 DATE OF CONSULTATION: 05/12/2016 REQUESTING PHYSICIAN: Adonay Byrd MD REASON FOR CONSULTATION: Medical management. HISTORY OF PRESENT ILLNESS: This is a pleasant 60-year-old female with past medical history of diab etes mellitus, hypertension, dyslipidemia, vitamin D deficiency, GERD, endometrial severe hyperplasi a with atypia who has been seen and evaluated by Dr. Adonay Byrd as outpatient and has been admit ryan to [facility] on 05/12/2016 for elective total laparoscopic hysterectomy with bilateral salpingo-oophorectomy. After discussing the mode of the treatment and the risks and the benefits of the surgery and signing consent, the patient was taken to OR for total laparoscopic hysterectomy and bilateral salpingo-oop horectomy, bilateral ureteral dissection with repositioning, laparoscopic pelvic and aortic l ymph node dissection The patient tolerated the procedure well and was taken to recovery room and has been admitted to med/surg for further evaluation and treatment. At this time, the patient denies a ny chest pain, shortness of breath, nausea, vomiting, diarrhea, minimal abdominal pain postoperative ly. No dysuria, hematuria, urgency, incontinence. The patient has been having some difficulty with ambulation secondary to pain, although she is minimal assist with ambulation. PAST MEDICAL AND SURGICAL HISTORY: 1. Diabetes mellitus. 2. Hypertension. 3. Dyslipidemia. 4. Vitamin D deficiency. 5. GERD. 6. Endometriosis with severe hyperplasia with atypia. MEDICATIONS: 1. Clonidine. 2. Famotidine. 3. Gabapentin. 4. Lantus. 5. Losartan 6. Metformin. 7. Multivitamin. 8. Simvastatin. 9. Januvia. 10. Vitamin D. ALLERGIES: 1. GOLYTELY POLYETHYLENE GLYCOL. 2. POTASSIUM CHLORIDE. 3. SODIUM BICARBONATE. 4. SODIUM SULFATE. SOCIAL HISTORY: Negative x3 for smoking, alcohol, illicit drugs. FAMILY HISTORY: Noncontributory. REVIEW OF SYSTEMS: As above per HPI, otherwise 12 review of systems has been found to be negative. PHYSICAL EXAMINATION: VITAL SIGNS: Temperature 98.3, pulse 78, respiration 16, blood pressure 145/69, oxygen 98% in room air. GENERAL APPEARANCE: The patient is lying in bed comfortably without any distress. She is awake, al ert, oriented. She is able to answer my questions properly. EYES AND ENT: Conjunctivae and lids are normal. Pupils are normal. Extraocular normal. Hearing g rossly normal. Lips are normal. Oral mucosa is moist. NECK: Supple. Trachea is midline. No lymphadenopathy. RESPIRATORY: Effort is normal. Clear to auscultate bilaterally. CARDIOVASCULAR: Normal S1, S2. Regular rhythm and rate. No murmur, no bruits, no edema. Peripher al pulses, radial pulses palpable. Cap refill is normal. CHEST: Normal expansion, inspiration. GASTROINTESTINAL: Abdomen is soft, minimally tender at the surgical site, especially in the periumb ilical region. The surgical site is dry and clean. There is no evidence of hematoma or active blee ding. No guarding, no rebound. GENITOURINARY: Deferred. MUSCULOSKELETAL: Upper and lower extremities within normal limits. Full range of motion. NEUROLOGIC: Cranial nerves II through XII are grossly intact. PSYCHIATRIC: Normal judgment and insight. Alert and oriented x3. Mood and affect is normal. LABORATORY WORK: Sodium 142, potassium 3.9, chloride 103, bicarbonate 31, BUN 14, creatinine 1.34, glucose 89, albumin 3.0. WBC 7.7, hemoglobin 8.1, hematocrit 24.1, platelets 284. ASSESSMENT AND PLAN: 1. Endometrial cancer with hyperplasia and atypia. The patient is status post laparoscopic hystere ctomy, bilateral salpingo-oophorectomy, bilateral ureteral dissection reposition laparoscopic , pelvic and aortic lymph node dissection by Dr. Byrd. Continue postop care. Continue pain medi cation, antiemetic medication and diet as per his recommendation. 2. Diabetes mellitus. Continue Januvia and Metformin, insulin sliding scale. 3. Hypertension, well controlled on medical management. 4. Acute renal insufficiency, may be secondary to anemia. We will follow up renal panel in a.m. C ontinue IV fluid. 5. Vitamin D deficiency. Continue vitamin D supplementation. 8. Gastroesophageal reflux disease. Continue Pepcid. 9. Neuropathy. Continue gabapentin. 10. Dyslipidemia. Continue statin. 11. For deep venous thrombosis prophylaxis, on sequential compression devices. 12. We will continue to monitor patient closely. Further recommendations, management and treatment as per clinical course. Dictated By: LEROY ROGERS/DIANE Conf#: [id number] [facility]#: [id number]
[2016-05-16] MEDS: HYDROCODONE/APAP (5/325) TAB PO PRN (17:23)
[2016-05-16 20:03] VITALS: BP 184/80; RESP 18
[2016-05-16] MEDS: ATORVASTATIN 20 MG TAB PO SCH (20:53)
[2016-05-16] MEDS ORDERED: ONDANSETRON 4 MG TAB PO PRN (22:00)
[2016-05-16] MEDS ORDERED: traMADol 50 MG TAB PO PRN (22:00)
[2016-05-16 22:18] VITALS: BP 188/91; PULSE 66
[2016-05-16 22:19] VITALS: BP 175/81; PULSE 68
[2016-05-17 01:07] VITALS: BP 115/64; PULSE 58
[2016-05-17] MEDS: ACCUCHECK XX SCH (02:00)
[2016-05-17 05:02] LABS: ADD SCAN DIFF NO
[2016-05-17 05:17] LABS: BASOPHILS % 0.5 % (0.0-2.0); EOSINOPHILS # 0.2 10^3/ul (0.0-0.5); EOSINOPHILS % 3.3 % (0.0-7.0); HEMATOCRIT 25.4 % (37.0-47.0); HEMOGLOBIN 8.4 g/dl (12.0-16.0); LYMPHOCYTES # 1.3 10^3/ul (0.8-2.9); LYMPHOCYTES % 23.3 % (15.0-51.0); MEAN CORPUSCULAR HEMOGLOBIN 30.9 pg (29.0-33.0); MEAN CORPUSCULAR HGB CONC 33.1 g/dl (32.0-37.0); MEAN CORPUSCULAR VOLUME 93.4 fl (82.0-101.0); MEAN PLATELET VOLUME 9.3 fl (7.4-10.4); MONOCYTE # 0.6 10^3/ul (0.3-0.9); MONOCYTES % 10.1 % (0.0-11.0); NEUTROPHIL # 3.6 10^3/ul (1.6-7.5); NEUTROPHILS % 62.6 % (39.0-77.0); PLATELET COUNT 279 10^3/UL (140-415); RED BLOOD COUNT 2.72 10^6/ul (4.20-5.40); RED CELL DISTRIBUTION WIDTH 11.8 % (11.5-14.5); WHITE BLOOD COUNT 5.8 10^3/ul (4.8-10.8)
[2016-05-17 05:24] LABS: POTASSIUM 4.3 mmol/L (3.5-5.1)
[2016-05-17 05:27] LABS: CALCIUM 8.9 mg/dl (8.4-10.2); CREATININE 1.3 mg/dl (0.44-1.00)
[2016-05-17 08:04] VITALS: BP 132/63; RESP 19
[2016-05-17] MEDS: LINAGLIPTIN 5 MG TABLET PO SCH (09:04)
[2016-05-17] MEDS: FAMOTIDINE 20 MG TAB PO SCH (09:04)
[2016-05-17] MEDS: LOSARTAN 50 MG TAB PO SCH (09:04)
[2016-05-17] MEDS: metFORMIN 500 MG TAB PO SCH ×2 (09:04→17:39)
[2016-05-17] MEDS: GABAPENTIN 300 MG CAP PO SCH (09:04)
[2016-05-17] MEDS: INSULIN GLARGINE [LANtus] 3 ML PEN SC SCH (09:05)
[2016-05-17] MEDS: INSULIN ASPART [NOVOLOG] 3 ML PEN SC SCH ×4 (09:07→20:21)
[2016-05-17] MEDS: ACETAMINOPHEN 325 MG TAB PO PRN ×3 (09:13→19:49)
[2016-05-17] MEDS: D5-LR + KCL 20 MEQ 1,000 ML IV SCH (12:00)
--- NOTE | 2016-05-17 14:15 | PN ---
Date/Time of Note Date/Time of Note DATE: 05/17/16 TIME: 14:13 Assessment/Plan VTE Prophylaxis VTE Prophylaxis Intervention: SCD's Lines/Catheters IV Catheter Type (from Nrsg): NO IV ACCESS Urinary Cath still in place: Yes Reason Cath still needed: other (indicate) Assessment/Plan Chief Complaint/Hosp Course ASSESSMENT AND PLAN: 1. Endometrial cancer with hyperplasia and atypia. The patient is status post laparoscopic hysterectomy, bilateral salpingo- oophorectomy, bilateral ureteral dissection reposition Continue postop care. Continue pain medication, antiemetic medication and diet as per his recommendation. 2. Diabetes mellitus. Continue Januvia and Metformin, insulin sliding scale. 3. Hypertension, well controlled on medical management. 4. Acute renal insufficiency, may be secondary to anemia. We will follow up renal panel in a.m. Continue IV fluid. 5. Vitamin D deficiency. Continue vitamin D supplementation. 8. Gastroesophageal reflux disease. Continue Pepcid. 9. Neuropathy. Continue gabapentin. 10. Dyslipidemia. Continue statin. 11. For deep venous thrombosis prophylaxis, on sequential compression devices. We will continue to monitor patient closely. Further recommendations, management and treatment as per clinical course. Disposition as per S[employer]IOR [employer] oncologist recommendations Problems: Subjective 24 Hr Interval Summary Free Text/Dictation Patient has been having difficulty with urination and the Ku was reinserted Has been having difficulty with ambulation secondary to weakness No nausea vomiting or diarrhea Minimal abdominal discomfort at surgical site Exam/Review of Systems Vital Signs Vitals Vital Signs Date Time Temp Pulse Resp B/P Pulse Ox O2 Delivery O2 Flow Rate FiO2 05/17/16 08:04 97.2 59 19 132/63 97 05/15/16 21:30 Room Air 05/13/16 10:05 2.0 Intake and Output 05/16/16 05/16/16 05/17/16 15:00 23:00 07:00 Intake Total 1260 ml 300 ml Output Total 550 ml 700 ml Balance 710 ml -400 ml Exam General: The patient is well-developed, Not in acute distress. HEENT: Atraumatic, normocephalic. The pupils are equal and round . Neck: Supple with full range of motion. Chest: Normal expansion of the thorax during inspiration Lungs: Clear to auscultation bilaterally Heart: Normal S1-S2, Regular rhythm and rate. Abdomen: Soft , nontender, nondistended , bowel sounds are present. Surgical site is dry and clean Extremities: Normal to inspection, no edema no cyanosis Neurologic: Normal mental status,The patient is awake, alert and oriented . Results Result Diagram: 05/17/16 0433 05/17/16 0433 Results 24 hrs Laboratory Tests Test 05/16/16 17:43 05/16/16 22:16 05/17/16 04:33 05/17/16 08:26 Bedside Glucose 116 101 175 Anion Gap 12 Basophils # 0.0 Basophils % 0.5 Blood Urea Nitrogen 18 Calcium Level 8.9 Carbon Dioxide Level 33 H Chloride Level 101 Creatinine 1.30 H Eosinophils # 0.2 Eosinophils % 3.3 Glucose Level 111 Hematocrit 25.4 L Hemoglobin 8.4 L Lymphocytes # 1.3 Lymphocytes % 23.3 Mean Corpuscular Hemoglobin 30.9 Mean Corpuscular Hemoglobin Concent 33.1 Mean Corpuscular Volume 93.4 Mean Platelet Volume 9.3 Monocytes # 0.6 Monocytes % 10.1 Neutrophils # 3.6 Neutrophils % 62.6 Nucleated Red Blood Cells # 0.0 Nucleated Red Blood Cells % 0.0 Platelet Count 279 Potassium Level 4.3 Red Blood Count 2.72 L Red Cell Distribution Width 11.8 Sodium Level 142 White Blood Count 5.8 # Test 05/17/16 12:31 Bedside Glucose 131 Medications Medications Current Medications Ondansetron HCl (Zofran Inj) 4 mg Q6H PRN IV NAUSEA AND/OR VOMITING Last administered on 05/16/16 17:23; Admin Dose 4 MG; Start 05/12/16 at 19:30 Acetaminophen/ Hydrocodone Bitart 1 tab 1 tab Q6H PRN PO PAIN Last administered on 05/16/16 17:23; Admin Dose 1 TAB; Start 05/12/16 at 23:30 Potassium Cl/ Dextrose/Lact Ringer's (D5-Lr + KCl 20 Meq) 1,000 ml @ 60 mls/hr [id number] IV Last administered on 05/16/16 02:20; Admin Dose 60 MLS/HR; Start 05/13/16 at 08:00 Acetaminophen (Tylenol Tab) 650 mg Q4H PRN PO PAIN AND OR ELEVATED TEMP Last administered on 05/17/16 13:11; Admin Dose 650 MG; Start 05/13/16 at 16:00 Hydromorphone HCl (Dilaudid) 0.2 mg Q3 PRN IV PAIN LEVEL 1-5 Last administered on 05/14/16 20:56; Admin Dose 0.2 MG; Start 05/14/16 at 17:30 Hydromorphone HCl (Dilaudid) 0.4 mg Q3 PRN IV PAIN LEVEL 6-10 Last administered on 05/15/16 10:29; Admin Dose 0.4 MG; Start 05/14/16 at 17:30 Ketorolac Tromethamine (Toradol) 15 mg Q6H PRN IV PAIN Last administered on 05/16 07:17; Admin Dose 15 MG; Start 05/14/16 at 18:30; Stop 05/17/16 at 18:29 Gabapentin (Neurontin) 300 mg DAILY PO Last administered on 05/17/16 09:04; Admin Dose 300 MG; Start 05/15/16 at 09:00 Insulin Glargine (Lantus) 20 unit DAILY SC Last administered on 05/17/16 09:05 ; Admin Dose 20 UNIT; Start 05/15/16 at 09:00 Losartan Potassium (Cozaar) 50 mg DAILY PO Last administered on 05/17/16 09:04 ; Admin Dose 50 MG; Start 05/15/16 at 09:00 Diagnostic Test (Pha) (Accucheck) 1 ea 02 XX ; Start 05/15/16 at 02:00 Atorvastatin Calcium (Lipitor) 20 mg DAILY@21 PO Last administered on 05/16/16 20:53; Admin Dose 20 MG; Start 05/14/16 at 21:00 Clonidine (Catapres) 0.1 mg Q6H PRN PO ELEVATED BLOOD PRESSURE Last administered on 05/16/16 20:53; Admin Dose 0.1 MG; Start 05/14/16 at 22:00 Linagliptin (Tradjenta) 5 mg DAILY PO Last administered on 05/17/16 09:04; Admin Dose 5 MG; Start 05/15/16 at 09:00 Miscellaneous Information 1 ea NOTE XX ; Start 05/14/16 at 22:00 Glucose (Glutose) 15 gm Q15M PRN PO DECREASED GLUCOSE; Start 05/14/16 at 22:00 Glucose (Glutose) 22.5 gm Q15M PRN PO DECREASED GLUCOSE; Start 05/14/16 at 22:00 Dextrose (D50w Syringe) 25 ml Q15M PRN IV DECREASED GLUCOSE; Start 05/14/16 at 22:00 Dextrose (D50w Syringe) 50 ml Q15M PRN IV DECREASED GLUCOSE; Start 05/14/16 at 22:00 Glucagon (Glucagen) 1 mg Q15M PRN IM DECREASED GLUCOSE; Start 05/14/16 at 22:00 Glucose (Glutose) 15 gm Q15M PRN BUCCAL DECREASED GLUCOSE; Start 05/14/16 at 22: 00 Lorazepam (Ativan) 1 mg Q6H PRN PO ANXIETY Last administered on 05/15/16 14:43 ; Admin Dose 1 MG; Start 05/15/16 at 14:00 Famotidine (Pepcid) 20 mg DAILY PO Last administered on 05/17/16 09:04; Admin Dose 20 MG; Start 05/17/16 at 09:00 Tramadol HCl (Ultram) 50 mg Q6H PRN PO PAIN; Start 05/16/16 at 22:00 Ondansetron HCl (Zofran Tab) 4 mg Q6H PRN PO NAUSEA AND/OR VOMITING; Start 05/16 at 22:00 LEROY HERNADEZ MD May 17, 2016 14:15
[2016-05-17 19:00] VITALS: BP 177/86; RESP 18
[2016-05-17] MEDS: ATORVASTATIN 20 MG TAB PO SCH (19:50)
[2016-05-17] MEDS: LORAZEPAM 1 MG TAB PO PRN (21:17)
[2016-05-17 22:38] VITALS: BP 120/67; PULSE 60
[2016-05-18] MEDS: ACETAMINOPHEN 325 MG TAB PO PRN ×3 (01:58→14:58)
[2016-05-18] MEDS: ACCUCHECK XX SCH (02:00)
[2016-05-18] MEDS: D5-LR + KCL 20 MEQ 1,000 ML IV SCH (04:40)
[2016-05-18 05:34] LABS: ADD SCAN DIFF NO
[2016-05-18 05:36] LABS: BASOPHILS % 0.2 % (0.0-2.0); EOSINOPHILS # 0.2 10^3/ul (0.0-0.5); EOSINOPHILS % 1.9 % (0.0-7.0); HEMATOCRIT 24.5 % (37.0-47.0); HEMOGLOBIN 8.1 g/dl (12.0-16.0); LYMPHOCYTES # 1.1 10^3/ul (0.8-2.9); LYMPHOCYTES % 13.4 % (15.0-51.0); MEAN CORPUSCULAR HEMOGLOBIN 30.7 pg (29.0-33.0); MEAN CORPUSCULAR HGB CONC 33.1 g/dl (32.0-37.0); MEAN CORPUSCULAR VOLUME 92.8 fl (82.0-101.0); MEAN PLATELET VOLUME 9.2 fl (7.4-10.4); MONOCYTE # 0.5 10^3/ul (0.3-0.9); MONOCYTES % 6.7 % (0.0-11.0); NEUTROPHIL # 6.3 10^3/ul (1.6-7.5); NEUTROPHILS % 77.6 % (39.0-77.0); PLATELET COUNT 274 10^3/UL (140-415); RED BLOOD COUNT 2.64 10^6/ul (4.20-5.40); RED CELL DISTRIBUTION WIDTH 12.1 % (11.5-14.5); WHITE BLOOD COUNT 8.1 10^3/ul (4.8-10.8)
[2016-05-18 05:54] LABS: POTASSIUM 4.7 mmol/L (3.5-5.1)
[2016-05-18 05:56] LABS: CREATININE 1.1 mg/dl (0.44-1.00)
[2016-05-18 05:57] LABS: CALCIUM 8.7 mg/dl (8.4-10.2); MAGNESIUM 1.4 mg/dl (1.7-2.5)
[2016-05-18] MEDS: INSULIN ASPART [NOVOLOG] 3 ML PEN SC SCH ×2 (07:50→11:40)
[2016-05-18 08:26] VITALS: BP 134/66; RESP 18
[2016-05-18] MEDS: GABAPENTIN 300 MG CAP PO SCH (08:27)
[2016-05-18] MEDS: LOSARTAN 50 MG TAB PO SCH (08:27)
[2016-05-18] MEDS: LINAGLIPTIN 5 MG TABLET PO SCH (08:27)
[2016-05-18] MEDS: FAMOTIDINE 20 MG TAB PO SCH (08:27)
[2016-05-18] MEDS: INSULIN GLARGINE [LANtus] 3 ML PEN SC SCH (08:29)
[2016-05-18] MEDS: metFORMIN 500 MG TAB PO SCH (08:31)
[2016-05-18 10:30] VITALS: BP 146/62; PULSE 72
--- NOTE | 2016-05-18 10:40 | PDOCDIS ---
Discharge Instructions CONDITION Patient Condition: Stable HOME CARE INSTRUCTIONS: Diet Instructions: Regular ACTIVITY: Activity Restrictions: Slowly Increase Activity Rest between Activity Avoid heavy lifting Do not operate Machinery Avoid Heavy Housework Bathing Restrictions: Shower FOLLOW UP/APPOINTMENTS Appointments Follow up with Dr Mazin Byrd in 2 weeks LEROY HERNADEZ MD May 18, 2016 10:40
[2016-05-18] MEDS ORDERED: UDROBDM PO (10:44)
[2016-05-18] MEDS ORDERED: TRAM50TA2 PO (10:44)
[2016-05-18] MEDS ORDERED: DOCU-144 PO (10:44)
[2016-05-18] MEDS ORDERED: BISA-57 PO (10:44)
[2016-05-18] MEDS ORDERED: ONDA4TAB95 PO (10:44)
[2016-05-18] MEDS ORDERED: MAGNESIUM OXIDE 400 MG TAB PO ONE (11:00)
[2016-05-18 12:00] VITALS: BP 132/82; PULSE 64
--- NOTE | 2016-05-18 12:28 | DS ---
DATE OF ADMISSION: 05/12/2016 DATE OF DISCHARGE: 05/18/2016 ADMITTING PHYSICIAN: Adonay Byrd MD DIAGNOSES: 1. Endometrial cancer with hyperplasia and atypia. The patient is status post laparoscopic hystere ctomy, bilateral salpingo-oophorectomy and bilateral ureteral dissection and repositioned 2. Diabetes mellitus. Continue Januvia, metformin and insulin. 3. Hypertension, well controlled on medical management. 4. Acute renal insufficiency, likely secondary to anemia, stable, status post IV fluid. 5. Anemia. The patient has been started on ferrous sulfate. 6. Vitamin D deficiency. Continue vitamin D supplementation. 7. Gastroesophageal reflux disease. Continue Prevacid. 8. Neuropathy. Continue gabapentin. 9. Dyslipidemia. Continue statin. MEDICATIONS: New prescription 1. Dulcolax. 2. Colace. 3. Robitussin-DM 4. Zofran. 5. Tramadol. The patient will continue her home medications of: 1. Clonidine 0.1 mg p.o. q.6h. 2. Famotidine 20 mg p.o. b.i.d. 3. Gabapentin 300 mg. 4. Lantus 20 units. 5. Losartan 50 mg. 6. Metformin 1000 mg. 7. Multivitamin. 8. Simvastatin 40 mg. 9. Januvia 100 mg. 10. Vitamin D. ALLERGIES: 1. GOLYTELY POLYETHYLENE GLYCOL. 3. POTASSIUM CHLORIDE. 4. SODIUM BICARBONATE. 5. SODIUM CHLORIDE. DISPOSITION: Home with home health. FOLLOWUP: Follow up with primary care physician in 1 week. Follow up with Dr. Byrd in 2 weeks. HOSPITAL COURSE: This is a 60-year-old female with past medical history of diabetes mellitus, hyper tension, dyslipidemia, vitamin D deficiency, GERD, endometrial severe hyperplasia with atypia, who w as seen and evaluated by Dr. Byrd as an outpatient and was admitted to [facility] on 05/11/2016 for elective total laparoscopic hysterectomy and bilateral salpingo-oophorectomy. The patient was taken to OR on 05/14/2016 for total laparoscopic hysterectomy with bilateral salpin go-oophorectomy and bilateral ureteral dissection and repositioned, laparoscopic pelvic and ao rtic lymph node dissection under general regional anesthesia. The patient tolerated the procedure w ell. 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 N o evidence of invasive carcinoma. Resection margins are free in situ carcinoma. Right pelvic, comm on iliac, left pelvic, left aortic lymph nodes and pelvic washings showed no evidence of malignancy. The patient was admitted to the oncology floor and has been continued on IV antibiotics, IV fluid, p ain medication. For her diabetes mellitus, the patient was placed metformin, Januvia and Lantus. F or her hypertension, the patient was placed on losartan. For pain medication, the patient was plac ed on Dilaudid and [place]. The patient has been able to tolerate her oral intake. Diet was advanced by surgery recommendations. Today, the patient has had bowel movement and surgical site is dry and clean. At this time, patient is medically stable to be discharged home with close followup with [facility] care physician and the surgery. LABORATORY DATA: WBC 8.1, hemoglobin 8.1, hematocrit 24.5, platelet 274. Sodium 141, potassium 4.7 , chloride 101, bicarbonate 28, BUN 20, creatinine 1.10, glucose 126. Magnesium 1.4, which will be replaced prior to discharge. CONDITION AT TIME OF DISCHARGE: Stable. The discharge was discussed with Dr. Byrd prior to her discharge, and the patient has been clear ed from his surgical standpoint for discharge as well. Dictated By: LEROY HERNADEZ MD PN/NTS Conf#: [id number] DID#: [id number]
== END 2016-05-18 16:45 | disposition home health service (06) | DRG 741 ==
LOC: REC 11:48 → MS1 20:05
PROC: 0UTC7ZZ Resection of Cervix, Via Natural or Artificial Opening (ICD-10-PCS; 2016-05-12)
PROC: 0UT7FZZ Resection of Bilateral Fallopian Tubes, Via Natural or Artificial Opening With Percutaneous Endoscopic Assistance (ICD-10-PCS; 2016-05-12)
PROC: 0UT2FZZ Resection of Bilateral Ovaries, Via Natural or Artificial Opening With Percutaneous Endoscopic Assistance (ICD-10-PCS; 2016-05-12)
PROC: 07BC4ZZ Excision of Pelvis Lymphatic, Percutaneous Endoscopic Approach (ICD-10-PCS; 2016-05-12)
PROC: 0TS84ZZ Reposition Bilateral Ureters, Percutaneous Endoscopic Approach (ICD-10-PCS; 2016-05-12)
PROC: 07BD4ZX Excision of Aortic Lymphatic, Percutaneous Endoscopic Approach, Diagnostic (ICD-10-PCS; 2016-05-12)
PROC: 0UT9FZZ Resection of Uterus, Via Natural or Artificial Opening With Percutaneous Endoscopic Assistance (ICD-10-PCS; principal; 2016-05-12 14:00)
DX: C54.1 Malignant neoplasm of endometrium (principal); I10 Essential (primary) hypertension; E55.9 Vitamin D deficiency, unspecified; G62.9 Polyneuropathy, unspecified; E11.9 Type 2 diabetes mellitus without complications; D64.9 Anemia, unspecified; E78.5 Hyperlipidemia, unspecified; N28.9 Disorder of kidney and ureter, unspecified; K21.9 Gastro-esophageal reflux disease without esophagitis; D06.9 Carcinoma in situ of cervix, unspecified
CPT/HCPCS: 80048; 80053; 81001; 81003; 82962; 83735; 85025; 86850; 86900; 86901; 86920; 88104; 88305; 88309; 93005; 97162; A4310; J0360; J0690; J1170; J1644; J1815; J1885; J2250; J2270; J2274; J2370; J2405; J2710; J3010; J3480; J7070

== ENCOUNTER 2019-01-15 22:58 | Emergency (ER) | payer SELFPAY ==
[~2019-01-15] VITALS: Ht 154.9 cm; Wt 46.9 kg
[~2019-01-15 22:58] MED LIST changes: +ASPI-535 PO; -BEN25 PO; +BISA-57 PO; +CALC600T24 PO; -CEFAZOLIN 2 GM/50 ML (PMX) 50 ML IVPB ONE; +CHOL100062 PO; +CLON-379 PO; -D5-NS + KCL 20 MEQ 1,000 ML IV SCH; +DOCU-144 PO; -FAMO-18 PO; +FAMO-96 PO; +GABA300C16 PO; -GLYCOPYRROLATE 0.4 MG INJ ONE; +GUAI5SYR2 PO; +LANT3I SC; +LOSA25TA12 PO; +LOSA50TA14 PO; +METF100010 PO; +MULT-761 PO; +OMEG-135 PO; +ONDA4TAB95 PO; -PROPOFOL 200 MG INJ ONE; +PYRI50TA15 PO; +SIMV80TA18 PO; +SITA100T11 PO; +TRAM50TA2 PO; +VIT D PO; +ZOLP5TAB PO; -metroNIDAZOLE 500 MG/NS (PMX) 100 ML IVPB ONE
[2019-01-15 23:04] VITALS: Ht 154.9 cm; Wt 46.9 kg
[2019-01-16] MEDS ORDERED: ONDANSETRON 4 MG INJ IV STA (01:42)
[2019-01-16] MEDS ORDERED: LABETALOL HCL 20MG INJ IV ONE (02:00)
[2019-01-16] MEDS ORDERED: ACETAMINOPHEN 325 MG TAB PO ONE (02:00)
[2019-01-16 04:08] VITALS: BP 151/81; PULSE 65; RESP 17
== END 2019-01-16 04:09 | disposition home or self-care (01) ==
LOC: E/R 22:58
DX: E11.65 Type 2 diabetes mellitus with hyperglycemia (principal); I10 Essential (primary) hypertension; R51 Headache; Z79.4 Long term (current) use of insulin; Z79.82 Long term (current) use of aspirin
CPT/HCPCS: 36415; 70450; 80048; 82962; 84484; 85025; 93005; 96374; 96375; 99285; J2405